=== PATIENT | female | born 1995 | race American Indian/Alaskan Native ===

== ENCOUNTER 2019-10-31 19:23 | Emergency (ER) | payer OTHER ==
[2019-10-31 20:06] VITALS: BP 102/65
[2019-10-31] MEDS ORDERED: ACETAMINOPHEN 325 MG TAB PO ONE (20:13)
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
== END 2019-10-31 22:05 | disposition home or self-care (01) ==
LOC: ED 19:23
DX: S46.811A Strain of other muscles, fascia and tendons at shoulder and upper arm level, right arm, initial encounter (principal); Z79.1 Long term (current) use of non-steroidal anti-inflammatories (NSAID); V89.2XXA Person injured in unspecified motor-vehicle accident, traffic, initial encounter; Y93.89 Activity, other specified; Y92.488 Other paved roadways as the place of occurrence of the external cause; Y99.8 Other external cause status
CPT/HCPCS: 72040; 72070; 99283

== ENCOUNTER 2019-12-06 13:49 | Emergency (ER) | payer OTHER | END 2019-12-06 13:50 | disposition left against medical advice (07) | LOC: ED 13:49 | DX: M79.646 Pain in unspecified finger(s) (principal); Z53.21 Procedure and treatment not carried out due to patient leaving prior to being seen by health care provider ==

== ENCOUNTER 2020-01-08 11:45 | Emergency (ER) | payer OTHER ==
[2020-01-08 12:39] VITALS: BP 109/79
--- NOTE | 2020-01-08 14:18 | Event Note ---
ED Screening Note Date of service: 01/08/20 Time: 14:15 ED Screening Note: 24-year-old female presents with right shoulder pain x1 week status post [employer] visit. Patient states pain started after she left [employer] but has gotten worse and she is unable to move the shoulder. States pain worsens with movement of neck and shoulder LMP November Patient with tenderness to palpation of the right shoulder, patient unable to extend due to pain This initial assessment/diagnostic orders/clinical plan/treatment(s) is/are subject to change based on patients health status, clinical progression and re- assessment by fellow clinical providers in the ED. Further treatment and workup at subsequent clinical providers discretion. Patient/guardian urged not to elope from the ED as their condition may be serious if not clinically assessed and managed. Initial orders include: xr shoulder
== END 2020-01-08 12:45 | disposition left against medical advice (07) ==
LOC: ED 11:45
DX: M25.511 Pain in right shoulder (principal); Z53.21 Procedure and treatment not carried out due to patient leaving prior to being seen by health care provider

== ENCOUNTER 2021-01-28 22:27 | Outpatient (CLI) | payer MEDICAID ==
[2021-01-28] MEDS ORDERED: LACTATED RINGERS 500 ML IV SCH (23:00)
[2021-01-28 23:03] VITALS: BP 109/68
[2021-01-29] MEDS ORDERED: hydrOXYzine PAMOATE 25 MG CAP PO ONE (00:09)
== END 2021-01-28 23:59 | disposition home or self-care (01) ==
LOC: TRG 22:27 → LD 22:28 → TRG 22:29 → UNDOADMOB 22:30 → INTOOBSV 22:30 → LD 22:30 → TRG 23:59 → UNDODISOB 01-29 02:10
DX: O62.9 Abnormality of forces of labor, unspecified (principal); Z3A.36 36 weeks gestation of pregnancy
CPT/HCPCS: 59025; 96360; J7120; G0378; Q0177